=== PATIENT | male | born 1980 | race American Indian/Alaskan Native ===

== ENCOUNTER 2021-04-17 15:32 | Emergency (ER) | payer MEDICAID ==
[~2021-04-17 15:32] MED LIST: CLOT12CR TOP; HYDR1TAB PO; IBUP-1051 PO; MICO90PO TOP; NO HOME MEDS; OXYC-138 PO
== END 2021-04-17 18:17 | disposition left against medical advice (07) ==
LOC: ER 15:33
DX: Z53.21 Procedure and treatment not carried out due to patient leaving prior to being seen by health care provider (principal)

== ENCOUNTER 2021-05-12 12:08 | Emergency (ER) | payer MEDICAID ==
[~2021-05-12] VITALS: Ht 170.2 cm; Wt 88.6 kg
[2021-05-12 12:22] VITALS: BP 158/90
== END 2021-05-12 14:13 | disposition home or self-care (01) ==
LOC: ER 12:09
DX: M70.32 Other bursitis of elbow, left elbow (principal); M25.522 Pain in left elbow; F15.90 Other stimulant use, unspecified, uncomplicated; Z72.89 Other problems related to lifestyle; Z79.2 Long term (current) use of antibiotics; Z79.899 Other long term (current) drug therapy
CPT/HCPCS: 99281

== ENCOUNTER 2023-12-15 12:33 | Inpatient (IN) | payer MEDICAID ==
[~2023-12-15] VITALS: Ht 170.2 cm; Wt 86.4 kg
[~2023-12-15 12:33] MED LIST changes: -CLOT12CR TOP; -HYDR1TAB PO; -IBUP-1051 PO; -MICO90PO TOP; -OXYC-138 PO
[2023-12-15] MEDS ORDERED: INSU100I31 (13:28)
[2023-12-15] MEDS ORDERED: METF-900 (13:28)
[2023-12-15 14:38] LABS: BASOPHILS # (AUTO) 0.1 X10'3 (0-0.2); BASOPHILS % (AUTO) 0.4 % (0-1); EOSINOPHILS % (AUTO) 0.1 % (0-6); HEMATOCRIT 45.8 % (42.0-52.0); HEMOGLOBIN 15.5 g/dl (14.0-17.9); LYMPHOCYTES % (AUTO) 5.9 % (21-51); MEAN CORPUSCULAR HEMOGLOBIN 30.5 PG (27.0-31.0); MEAN CORPUSCULAR HGB CONC 33.9 g/dL (33.0-36.5); MEAN CORPUSCULAR VOLUME 89.9 FL (78-98); MEAN PLATELET VOLUME 8.3 FL (7.4-10.4); MONOCYTES # (AUTO) 0.7 X10'3 (0-0.9); MONOCYTES % (AUTO) 4.5 % (2-12); NEUTROPHILS # (AUTO) 14.7 X10'3 (1.8-7.7); NEUTROPHILS % (AUTO) 89.1 % (42-75); PLATELET COUNT 110 X10'3 (140-440); RED BLOOD COUNT 5.09 X10'6 (4.70-6.10); RED CELL DISTRIBUTION WIDTH 13.9 % (11.5-14.5); WHITE BLOOD COUNT 16.5 X10'3 (4.5-11.0)
[2023-12-15 14:52] LABS: ALBUMIN 3.2 G/DL (3.4-5.0); ANION GAP 7 (8-16); BLOOD UREA NITROGEN 16 MG/DL (7-18); BUN/CREATININE RATIO 11.8 (10.0-20.0); CALCIUM 9.2 MG/DL (8.5-10.1); CHLORIDE 95 MMOL/L (99-107); CREATININE 1.36 MG/DL (0.60-1.10); GLUCOSE 229 MG/DL (70-104); POTASSIUM 3.8 MMOL/L (3.5-5.1); SODIUM 130 MMOL/L (135-145); eCRCL 64 ML/MIN; eGFR 57 ML/MIN
[2023-12-15] MEDS: HYDROcodone/acetaminophen 10/325mg tab PO ONE (14:54)
[2023-12-15] MEDS: vancomycin/NS 1 GM ADD-VANTAGE 250 ML X 1 DOSE IV ONE (14:54)
[2023-12-15] MEDS: piperacillin/tazo 3.375gm/50ml 50 ML IV ONE (15:00)
[2023-12-15] MEDS ORDERED: iohexol 300mg/ml 100ml inj. ONE (15:01)
[2023-12-15] MEDS: normal saline 1000ML IV soln IV ONE (15:01)
[2023-12-15] MEDS ORDERED: magnesium hydroxide 30ml (MOM) UD suspension PO PRN (17:25)
[2023-12-15] MEDS ORDERED: morphine 2 MG/ML inj. syringe IV PRN (17:25)
[2023-12-15] MEDS ORDERED: magnesium Cl slow-release 64mg tablet PO PRN (17:25)
[2023-12-15] MEDS ORDERED: dextrose 50%-water 50ml dispensing syringe IV PRN ×2 (17:25)
[2023-12-15] MEDS ORDERED: magnesium 4gm in 100ml NS 100 ML IV PRN (17:25)
[2023-12-15] MEDS ORDERED: potassium Cl 20 mEq SR tablet PO PRN ×2 (17:25)
[2023-12-15] MEDS ORDERED: mag hydrox/Alum hydrox/simeth 30ml oral suspension PO PRN (17:25)
[2023-12-15] MEDS ORDERED: magnesium 2GM in 50ml NS 50 ML IV PRN (17:25)
[2023-12-15] MEDS ORDERED: glucagon, human recombinant 1mg kit SUBCUT PRN (17:25)
[2023-12-15] MEDS ORDERED: DEXTROSE 15 GM of carb/4 tabs (each vial/BOTTLE has 4 tablets) PO PRN ×2 (17:25)
[2023-12-15] MEDS ORDERED: potassium Cl 40MEQ/1/2NS 520ml 520 ML IV PRN (17:25)
[2023-12-15] MEDS ORDERED: ondansetron/PF 4mg/2ml inj IV PRN (17:25)
[2023-12-15] MEDS ORDERED: acetaminophen 325mg tablet PO PRN (17:25)
[2023-12-15] MEDS ORDERED: HYDROcodone/acetaminophen 5mg/325mg tablet PO PRN (17:25)
[2023-12-15] MEDS: nicotine 21mg patch - 24 hr TD ONE (18:25)
[2023-12-15 19:04] LABS: BILIRUBIN,URINE NEGATIVE (Neg); CLARITY,URINE CLEAR (Clear); COLOR,URINE YELLOW (Yellow); GLUCOSE, URINE 500 mg/dl (Neg); KETONES,URINE TRACE mg/dl (Neg); LEUKOCYTE ESTERASE ,URINE NEGATIVE (Neg); NITRITES, URINE NEGATIVE (Neg); OCCULT BLOOD,URINE NEGATIVE (Neg); PROTEIN,URINE TRACE mg/dl (Neg)
[2023-12-15 19:07] LABS: UA COLLECTION TYPE URINAL
[2023-12-15 19:19] LABS: RBC,URINE 0-2 /HPF (0-2); WBC,URINE 0-4 /HPF (0-4)
[2023-12-15 19:20] LABS: BACTERIA,URINE FEW /HPF (Neg); HYALINE CASTS 0-3 /LPF (NEGATIVE); SQUAMOUS EPITHELIAL CELL,UR NONE SEEN /LPF (FEW)
[2023-12-15] MEDS: docusate sod 100mg capsule PO SCH (19:20)
[2023-12-15] MEDS: normal saline 1000ml 1,000 ML IV SCH ×2 (19:20→20:58)
[2023-12-15 19:24] LABS: URINE AMPHETAMINE SCREEN POSITIVE (Neg); URINE BARBITUATE SCREEN NEGATIVE (Neg); URINE BENZODIAZEPINES SCREEN NEGATIVE (Neg); URINE CANNABINOID SCREEN NEGATIVE (Neg); URINE COCAINE SCREEN NEGATIVE (Neg); URINE METHADONE SCREEN NEGATIVE (Neg); URINE OPIATE SCREEN POSITIVE (Neg); URINE PHENCYCLIDINE SCREEN NEGATIVE (Neg)
[2023-12-15] MEDS: K and/or MAG REPLACEMENT MC SCH (20:00)
[2023-12-15] MEDS ORDERED: LORazepam 1 MG tablet PO PRN (20:20)
[2023-12-15] MEDS: enoxaparin 40mg/0.4ml syringe SQ SCH (20:57)
[2023-12-15] MEDS: INSULIN LISPRO 100 UNIT/ML INSULN.PEN MULTI-DOSE SQ SCH (21:00)
[2023-12-15] MEDS: insulin glargine (Lantus) pen - multi-dose SQ ONE (21:22)
[2023-12-15 22:00] VITALS: BP 118/64; PULSE 72; RESP 19; TEMP 99.6; O2SAT 93
[2023-12-16] MEDS: piperacillin/tazo 4.5gm/100ml 100 ML IV SCH (01:01)
[2023-12-16] MEDS: HYDROcodone/acetaminophen 10/325mg tab PO PRN (04:09)
[2023-12-16 05:00] VITALS: BP 121/78; PULSE 96; RESP 17; TEMP 97.9; O2SAT 98
[2023-12-16 06:47] LABS: BASOPHILS % (AUTO) 0.2 % (0-1); EOSINOPHILS # (AUTO) 0.1 X10'3 (0-0.9); EOSINOPHILS % (AUTO) 0.6 % (0-6); HEMATOCRIT 39.7 % (42.0-52.0); HEMOGLOBIN 13.2 g/dl (14.0-17.9); LYMPHOCYTES # (AUTO) 1.3 X10'3 (1.1-4.8); LYMPHOCYTES % (AUTO) 8.6 % (21-51); MEAN CORPUSCULAR HEMOGLOBIN 29.7 PG (27.0-31.0); MEAN CORPUSCULAR HGB CONC 33.2 g/dL (33.0-36.5); MEAN CORPUSCULAR VOLUME 89.3 FL (78-98); MONOCYTES # (AUTO) 0.7 X10'3 (0-0.9); MONOCYTES % (AUTO) 4.7 % (2-12); NEUTROPHILS % (AUTO) 85.9 % (42-75); PLATELET COUNT 100 X10'3 (140-440); RED BLOOD COUNT 4.44 X10'6 (4.70-6.10); RED CELL DISTRIBUTION WIDTH 14.1 % (11.5-14.5); WHITE BLOOD COUNT 15.1 X10'3 (4.5-11.0)
[2023-12-16 06:51] LABS: INR 1.1 INR; PROTHROMBIN TIME 11.9 SECONDS (9.0-12.0)
[2023-12-16 06:59] LABS: ALANINE AMINOTRANSFERASE 27 U/L (12-78); ALBUMIN 2.5 G/DL (3.4-5.0); ALBUMIN/GLOBULIN RATIO 0.6 (1.1-1.5); ALKALINE PHOSPHATASE 76 IU/L (46-116); AMYLASE 21 U/L (25-115); ANION GAP 7 (8-16); ASPARTATE AMINO TRANSFERASE 10 U/L (10-37); BILIRUBIN,TOTAL 1.1 MG/DL (0.1-1.0); BLOOD UREA NITROGEN 10 MG/DL (7-18); BUN/CREATININE RATIO 10.5 (10.0-20.0); CALCIUM 8.3 MG/DL (8.5-10.1); CHLORIDE 102 MMOL/L (99-107); CHOLESTEROL 118 MG/DL (0-200); CREATININE 0.95 MG/DL (0.60-1.10); GLUCOSE 187 MG/DL (70-104); HDL CHOLESTEROL 40 MG/DL (35-60); LDL CHOLESTEROL 60 MG/DL (50-100); LIPASE 16 U/L (16-77); MAGNESIUM 1.9 MG/DL (1.5-2.4); PHOSPHORUS 2.2 MG/DL (2.3-4.5); POTASSIUM 3.6 MMOL/L (3.5-5.1); SODIUM 134 MMOL/L (135-145); TOTAL CARBON DIOXIDE 25.5 MMOL/L (24-32); TOTAL PROTEIN 6.5 G/DL (6.4-8.2); TRIGLYCERIDES 149 MG/DL (20-135); eCRCL 92 ML/MIN; eGFR 86 ML/MIN
[2023-12-16] MEDS: multivitamins, therapeutics tablet PO SCH (08:22)
[2023-12-16 10:00] VITALS: BP 117/64; PULSE 87; RESP 16; TEMP 98.4; O2SAT 97
[2023-12-16] MEDS: folic acid 1mg tablet PO SCH (13:13)
[2023-12-16] MEDS: thiamine 100mg tablet PO SCH (13:13)
[2023-12-16 18:00] VITALS: BP 115/68; PULSE 103; RESP 18; TEMP 98.6; O2SAT 96
[2023-12-16 20:00] VITALS: RESP 18; O2SAT 96
[2023-12-16 22:00] VITALS: BP 105/66; PULSE 91; RESP 18; TEMP 97.9; O2SAT 100
[2023-12-17 06:20] LABS: BASOPHILS % (AUTO) 0.2 % (0-1); EOSINOPHILS # (AUTO) 0.1 X10'3 (0-0.9); EOSINOPHILS % (AUTO) 1.1 % (0-6); HEMATOCRIT 35.9 % (42.0-52.0); HEMOGLOBIN 12.2 g/dl (14.0-17.9); LYMPHOCYTES # (AUTO) 1.7 X10'3 (1.1-4.8); LYMPHOCYTES % (AUTO) 12.5 % (21-51); MEAN CORPUSCULAR HEMOGLOBIN 30.3 PG (27.0-31.0); MEAN CORPUSCULAR HGB CONC 33.9 g/dL (33.0-36.5); MEAN CORPUSCULAR VOLUME 89.5 FL (78-98); MEAN PLATELET VOLUME 8.5 FL (7.4-10.4); MONOCYTES # (AUTO) 0.9 X10'3 (0-0.9); MONOCYTES % (AUTO) 6.8 % (2-12); NEUTROPHILS # (AUTO) 10.6 X10'3 (1.8-7.7); NEUTROPHILS % (AUTO) 79.4 % (42-75); PLATELET COUNT 113 X10'3 (140-440); RED BLOOD COUNT 4.01 X10'6 (4.70-6.10); RED CELL DISTRIBUTION WIDTH 13.9 % (11.5-14.5); WHITE BLOOD COUNT 13.4 X10'3 (4.5-11.0)
[2023-12-17 06:26] LABS: INR 1.1 INR; PROTHROMBIN TIME 11.4 SECONDS (9.0-12.0)
[2023-12-17 06:41] LABS: ALANINE AMINOTRANSFERASE 25 U/L (12-78); ALBUMIN 2.3 G/DL (3.4-5.0); ALBUMIN/GLOBULIN RATIO 0.5 (1.1-1.5); ALKALINE PHOSPHATASE 76 IU/L (46-116); AMYLASE 29 U/L (25-115); ANION GAP 9 (8-16); ASPARTATE AMINO TRANSFERASE 13 U/L (10-37); BILIRUBIN,TOTAL 0.8 MG/DL (0.1-1.0); BLOOD UREA NITROGEN 12 MG/DL (7-18); BUN/CREATININE RATIO 13.3 (10.0-20.0); CALCIUM 8.3 MG/DL (8.5-10.1); CHLORIDE 103 MMOL/L (99-107); GLUCOSE 160 MG/DL (70-104); LIPASE 21 U/L (16-77); MAGNESIUM 1.9 MG/DL (1.5-2.4); PHOSPHORUS 2.4 MG/DL (2.3-4.5); POTASSIUM 3.5 MMOL/L (3.5-5.1); SODIUM 135 MMOL/L (135-145); TOTAL CARBON DIOXIDE 23.3 MMOL/L (24-32); TOTAL PROTEIN 6.5 G/DL (6.4-8.2); eCRCL 97 ML/MIN; eGFR > 90 ML/MIN
[2023-12-17 07:00] VITALS: BP 100/76; PULSE 90; RESP 18; TEMP 98.5; O2SAT 95
[2023-12-17 08:00] VITALS: RESP 16; O2SAT 95
[2023-12-17 10:00] VITALS: BP 96/62; PULSE 80; RESP 16; TEMP 98.3; O2SAT 97
[2023-12-17] MEDS ORDERED: CLIN150C2 PO (11:40)
[2023-12-17] MEDS ORDERED: FOLI1TAB27 PO (11:40)
[2023-12-17] MEDS ORDERED: ASPI-1265 PO (11:40)
[2023-12-17] MEDS ORDERED: MULT-25 PO (11:40)
[2023-12-17] MEDS ORDERED: LACT1CAP86 PO (11:40)
[2023-12-17] MEDS ORDERED: HYDR-3964 PO (11:40)
[2023-12-17] MEDS ORDERED: thiamine tablet PO (11:40)
[2023-12-17] MEDS ORDERED: ATOR10TA87 PO (11:40)
[2023-12-19] MEDS ORDERED: thiamine 100mg tablet PO SCH (08:00)
[2023-12-20] MEDS ORDERED: folic acid 1mg tablet PO SCH (08:00)
== END 2023-12-17 13:09 | disposition home or self-care (01) | DRG 720 ==
LOC: ER 12:33 → UNDOADMIN 17:24 → ED HOLD 17:24 → ORTHO 4S 21:55 → ED HOLD 21:55
PROVIDERS: ADMIT Internal Medicine; ATTEND Internal Medicine
DX: A41.9 Sepsis, unspecified organism (principal); N17.0 Acute kidney failure with tubular necrosis; E87.1 Hypo-osmolality and hyponatremia; L03.115 Cellulitis of right lower limb; E11.9 Type 2 diabetes mellitus without complications; F15.10 Other stimulant abuse, uncomplicated; M25.511 Pain in right shoulder; E78.00 Pure hypercholesterolemia, unspecified; Z79.82 Long term (current) use of aspirin; Z79.899 Other long term (current) drug therapy; Z79.84 Long term (current) use of oral hypoglycemic drugs; Z87.891 Personal history of nicotine dependence; Z83.3 Family history of diabetes mellitus
CPT/HCPCS: 36415; 71045; 73701; 80048; 80053; 80061; 80305; 81001; 82150; 82948; 83036; 83605; 83690; 83735; 84100; 84145; 85025; 85610; 87040; 87081; 93005; 93971; 96365; 96367; 99285; G0378; J1650; J1815; J2543; J3370; J7030; Q9967

== ENCOUNTER 2024-10-01 12:20 | Emergency (ER) | payer MEDICAID ==
[~2024-10-01] VITALS: Ht 170.2 cm; Wt 79.5 kg
[~2024-10-01 12:20] MED LIST changes: +FOLI1TAB27 PO; +HYDR-3964 PO; +INSU100I31; +LACT1CAP86 PO; +METF-900; +MULT-25 PO; -NO HOME MEDS; +thiamine tablet PO
[2024-10-01 12:29] VITALS: BP 145/82; PULSE 128; RESP 18; TEMP 100.9; O2SAT 99
[2024-10-01 13:01] LABS: BASOPHILS % (AUTO) 0.3 % (0-1); EOSINOPHILS % (AUTO) 0 % (0-6); HEMATOCRIT 45.4 % (42.0-52.0); HEMOGLOBIN 15.6 g/dl (14.0-17.9); LYMPHOCYTES # (AUTO) 0.7 X10'3 (1.1-4.8); LYMPHOCYTES % (AUTO) 6.1 % (21-51); MEAN CORPUSCULAR HEMOGLOBIN 30.1 PG (27.0-31.0); MEAN CORPUSCULAR HGB CONC 34.3 g/dL (33.0-36.5); MONOCYTES # (AUTO) 0.5 X10'3 (0-0.9); MONOCYTES % (AUTO) 4.1 % (2-12); NEUTROPHILS # (AUTO) 10.8 X10'3 (1.8-7.7); NEUTROPHILS % (AUTO) 89.5 % (42-75); PLATELET COUNT 126 X10'3 (140-440); RED BLOOD COUNT 5.16 X10'6 (4.70-6.10); RED CELL DISTRIBUTION WIDTH 13.8 % (11.5-14.5)
[2024-10-01 13:19] LABS: ALANINE AMINOTRANSFERASE 39 U/L (12-78); ALBUMIN 3.7 G/DL (3.4-5.0); ALBUMIN/GLOBULIN RATIO 0.9 (1.1-1.5); ALKALINE PHOSPHATASE 97 IU/L (46-116); ANION GAP 9 (8-16); ASPARTATE AMINO TRANSFERASE 23 U/L (10-37); BILIRUBIN,TOTAL 1.7 MG/DL (0.1-1.0); BLOOD UREA NITROGEN 13 MG/DL (7-18); BUN/CREATININE RATIO 12.3 (10.0-20.0); CALCIUM 8.8 MG/DL (8.5-10.1); CHLORIDE 98 MMOL/L (99-107); CREATININE 1.06 MG/DL (0.60-1.10); GLUCOSE 193 MG/DL (70-104); LIPASE 17 U/L (16-77); POTASSIUM 4.1 MMOL/L (3.5-5.1); SODIUM 133 MMOL/L (135-145); TOTAL CARBON DIOXIDE 26.5 MMOL/L (24-32); TOTAL PROTEIN 7.6 G/DL (6.4-8.2); eCRCL 81 ML/MIN; eGFR 75 ML/MIN
[2024-10-01 15:13] LABS: BILIRUBIN,URINE NEGATIVE (Neg); CLARITY,URINE CLEAR (Clear); COLOR,URINE YELLOW (Yellow); GLUCOSE, URINE 250 mg/dl (Neg); KETONES,URINE TRACE mg/dl (Neg); LEUKOCYTE ESTERASE ,URINE NEGATIVE (Neg); NITRITES, URINE NEGATIVE (Neg); OCCULT BLOOD,URINE NEGATIVE (Neg); PROTEIN,URINE 30 mg/dl (Neg)
[2024-10-01 15:20] LABS: UA COLLECTION TYPE VOIDED
[2024-10-01 15:24] LABS: BACTERIA,URINE NONE SEEN /HPF (Neg); FINE GRANULAR CAST 0-3 /LPF (NEGATIVE); MUCUS STRANDS FEW /LPF (Neg); RBC,URINE 0-2 /HPF (0-2); SQUAMOUS EPITHELIAL CELL,UR FEW /LPF (FEW); WBC,URINE 0-4 /HPF (0-4)
[2024-10-01] MEDS ORDERED: DOXY100C43 PO (16:06)
[2024-10-01] MEDS ORDERED: HYDR-3965 PO (16:06)
== END 2024-10-01 16:31 | disposition home or self-care (01) ==
LOC: ER 12:21
DX: R59.0 Localized enlarged lymph nodes (principal); E11.9 Type 2 diabetes mellitus without complications; E78.00 Pure hypercholesterolemia, unspecified
CPT/HCPCS: 36415; 80053; 81001; 83690; 85025; 99283

== ENCOUNTER 2025-02-01 16:25 | Emergency (ER) | payer MEDICAID ==
[~2025-02-01] VITALS: Ht 170.2 cm; Wt 80.0 kg
[2025-02-01 16:50] VITALS: BP 107/81; PULSE 118; RESP 16; TEMP 98.9; O2SAT 98
--- NOTE | 2025-02-01 16:54 | Physician Documentation ---
History of Present Illness ~ Stated Complaint: LYMPH NODE SWELLING Primary Medical Doctor: candida beth [facility] This is a 44-year-old male presents to the emergency department with painful swelling in the right groin. He reports that this is happened before, review of the chart shows that he was here in the emergency department in September of this year for right inguinal lymphadenopathy, and was given antibiotics per presumed infection. He reports an issue with chronic athlete's foot on the right foot, chronic open areas to same. Denies fever or chills, nausea vomiting, chest pain or shortness of breath. Tetanus witin 5 years: No Medication Reconciliation Allergies: Coded Allergies: No Known Allergies (Unverified , 10/01/24) Scheduled Folic Acid* (Folic Acid*), 1 MG PO DAILY Lactobacillus Acidophilus (Acidophilus Lactobacilli), 1 CAP PO Q12H Metformin Hcl* (Metformin ER*), 1 TAB BID, (Reported) Multivitamin with Folic Acid (Thera Tablet), 1 EACH PO Q24H [thiamine tablet], 100 MG PO DAILY Scheduled PRN Hydrocodone Bit/Acetaminophen (Hydrocodon-Acetaminophen 5-325), 1 TAB PO Q4H PRN for MODERATE PAIN 4-6 Miscellaneous Medications Insulin Glargine,Hum.rec.anlog (Basaglar Kwikpen U-100), (Reported) Past Medical History Past Medical History: High Cholesterol, Diabetes, Cellulitis Past Surgical History: no surgical history Patient History: FH: diabetes mellitus FATHER MOTHER Alcohol Use: Heavy Drug Use: methamphetamine Lives with: Family Lives In: Home Occupation: other Review of Systems ROS As stated above in the HPI, otherwise all systems are reviewed and negative. Physical Exam Physical Exam General: Alert, no apparent distress. Neck: Full range of motion. Respiratory: Lungs clear, no respiratory distress. Chest: No accessory muscle use. Cardiovascular: Regular rate and rhythm 3/6 systolic murmur. Gastrointestinal: Soft, nontender, nondistended. Bowels sounds present. Extremities: Antalgic gait favoring right leg. Neurologic: Oriented x4. Psychiatric: Normal mood and affect. Skin: Normal color, warm and dry. No edema, no ecchymosis. Progress Results/Orders Results/Orders Orders - KLAUIDA VACA [employer]ORIZED [place] [employer] BMP (02/01/25 16:53) Cbc/Diff (02/01/25 16:53) Vital Signs 02/01/25 16:50 Temp 98.9 Pulse 118 Resp 16 B/P (MAP) 107/81 Pulse Ox 98 O2 Flow Rate 0 Departure Referrals: NO PRIMARY CARE PROVIDER (PCP) Signature Scribe Signature: x Attestation: The note accurately reflects work and decisions made by me.Klaudia Medina NP 02/01/25 16:56 KLAUDIA VACA NP Feb 01, 2025 16:54
[2025-02-01 17:23] LABS: MEAN PLATELET VOLUME 8.2 FL (7.4-10.4); RED CELL DISTRIBUTION WIDTH 13.2 % (11.5-14.5)
[2025-02-01 17:30] LABS: CREATININE 1.06 MG/DL (0.60-1.10); TOTAL CARBON DIOXIDE 28.7 MMOL/L (24-32); eCRCL 81 ML/MIN; eGFR 75 ML/MIN
== END 2025-02-01 21:01 | disposition left against medical advice (07) ==
LOC: ER 16:25
DX: R10.31 Right lower quadrant pain (principal); E11.9 Type 2 diabetes mellitus without complications; E78.00 Pure hypercholesterolemia, unspecified
CPT/HCPCS: 36415; 80048; 85025; 99283